=== PATIENT | female | born 1985 | race Caucasian/White ===

== ENCOUNTER 2020-03-11 09:16 | Emergency (ER) | payer OTHER, SELFPAY ==
[~2020-03-11] VITALS: Ht 165.1 cm; Wt 59.0 kg
[2020-03-11 09:22] VITALS: BP 153/89
== END 2020-03-11 11:32 | disposition home or self-care (01) ==
LOC: ER 09:16
DX: J40 Bronchitis, not specified as acute or chronic (principal); R50.9 Fever, unspecified; Z20.828 Contact with and (suspected) exposure to other viral communicable diseases
CPT/HCPCS: 71045; 87070; 87635; 87804; 87880

== ENCOUNTER 2024-12-15 18:47 | Emergency (ER) | payer SELFPAY | END 2024-12-15 20:19 | disposition left against medical advice (07) | LOC: ER 18:47 | DX: M54.2 Cervicalgia (principal); Z53.21 Procedure and treatment not carried out due to patient leaving prior to being seen by health care provider ==